=== PATIENT | male | born 1965 | race Caucasian/White ===

== ENCOUNTER 2017-07-15 08:10 | Emergency (ER) | payer OTHER, MEDICAID ==
[~2017-07-15] VITALS: Ht 180.3 cm; Wt 68.0 kg
[2017-07-15 08:14] VITALS: BP 104/61
--- NOTE | 2017-07-15 08:14 | NUR ---
PATIENT BIB FROM [facility] . PER EMS, PATIENT WAS FOUND IN THE BATHROOM FLOOR. PATIENT HAS HX OF SEIZURE. NO N/V/D; SKIN IS PINK/WARM/DRY; PATIENT AWAKE BUT UNABLE TO FOLLOW COMMANDS. LUNGS CLEAR BL; HR EVEN AND REGULAR; NO FEVER, CP, SOB, OR COUGH AT THIS TIME; FLACC 0 THIS TIME; VSS; PATIENT POSITIONED FOR COMFORT; HOB ELEVATED; BEDRAILS UP X2; BED DOWN. ER MD MADE AWARE OF PT STATUS.
--- NOTE | 2017-07-15 08:15 | NUR ---
CODE BRAIN ACTIVATED. CT CALLED.
[2017-07-15] MEDS ORDERED: DEXTROSE 50% 50 ML SYR IVP ONE ×2 (08:19→08:20)
--- NOTE | 2017-07-15 08:51 | NUR ---
ONLINE RADIOLOGY CALLED TRANSFERRED TO DR. THOMAS FOR CRITICAL FINDING.
[2017-07-15] MEDS ORDERED: LORazepam 2 MG/ML VIAL IVP ONE (08:55)
--- NOTE | 2017-07-15 09:00 | NUR ---
CUSTOM MILLER AT BEDSIDE JOSE A LANGE [phone] PATIENT'S BROTHER ERMA NATE [phone]
[2017-07-15 10:12] VITALS: BP 89/56
--- NOTE | 2017-07-15 10:12 | NUR ---
PATIENT PICKED UP BY [facility] TO BE TRANSFERRED TO [facility]. CAREGIVER JOSE A NOTIFIED
== END 2017-07-15 10:12 | disposition short-term general hospital (02) ==
LOC: MED 08:10
DX: G40.909 Epilepsy, unspecified, not intractable, without status epilepticus (principal); I95.89 Other hypotension; F17.210 Nicotine dependence, cigarettes, uncomplicated
CPT/HCPCS: 70450; 82948; 93005; 96374; 96375; 99285; J2060

== ENCOUNTER 2017-08-31 11:54 | Inpatient (IN) | payer OTHER, MEDICAID ==
[~2017-08-31] VITALS: Ht 170.2 cm; Wt 65.3 kg
--- NOTE | 2017-08-31 11:56 | NUR ---
PT BIBA BLS FOR SYNCOPE TO BED 2
--- NOTE | 2017-08-31 12:20 | NUR ---
51 [facility]O [place] [facility] [place] THAT LASTED 2 MINUTES. PT A&O X 2 (WAS UNSURE WHERE HE WAS AND WHY), PT VERY SLOW TO PROCESS INFORMATION. GCS 14, PT ORIENTED TO OWN ABILITY. PER REPORT FROM EMS, PT NEURO IS AT BASELINE R/T HX CVA. CMS INTACT. RR EVEN AND UNLABORED. LUNG SOUNDS BILAT CLEAR. ABD SOFT, NON-TENDER. PT AWAKE SITTING UP IN [facility] AT THIS TIME. PT KEEPS LIFTING RIGHT ARM TO PLAY WITH MY GLOVE AND HIS IV. IV SECURED WELL TO PREVENT PT FROM PULLING OUT. PERRLA INTACT. RIGHT ARM DELIVERY NURSE W/MILD WEAKNESS. ER MD MORGAN NOTIFIED. PT NEEDS MET. SAFETY PRECAUTIONS IN PLACE. WILL CONTINUE TO MONITOR.
--- NOTE | 2017-08-31 12:38 | NUR ---
XRAY AT BEDSIDE AT THIS TIME.
--- NOTE | 2017-08-31 12:46 | NUR ---
LAB AT BEDSIDE AT THIS TIME.
[2017-08-31 13:01] LABS: BASOPHILS % (AUTO) 0.6 % (0.0-2.0); EOSINOPHILS # (AUTO) 0.3 K/uL (0-0.4); EOSINOPHILS % (AUTO) 5.2 % (0.0-4.0); HEMATOCRIT 41.8 % (36-52); HEMOGLOBIN 13.9 g/dL (12.0-18.0); LYMPHOCYTES # (AUTO) 2.3 K/uL (2.0-11.5); LYMPHOCYTES % (AUTO) 38.4 % (20.5-51.1); MEAN CORPUSCULAR HEMOGLOBIN 30 pg (27-31); MEAN CORPUSCULAR HGB CONC 33 g/dL (33-37); MEAN CORPUSCULAR VOLUME 90.4 fL (80-94); MONOCYTES # (AUTO) 0.4 K/uL (0.8-1.0); NEUTROPHILS # (AUTO) 2.9 K/uL (1.8-7.7); NEUTROPHILS % (AUTO) 48.8 % (42.2-75.2); PLATELET COUNT (AUTO) 143 K/uL (140-450); RED BLOOD CELL COUNT(AUTO) 4.63 MIL/uL (4.20-6.10); RED CELL DISTRIBUTION WIDTH 14.2 % (11.6-13.7)
[2017-08-31 13:12] LABS: ANION GAP 13.5 (8-16); CARBON DIOXIDE 23.3 mmol/L (21-32); CREATININE 0.9 mg/dL (0.7-1.3); POTASSIUM 3.8 mmol/L (3.5-5.1)
--- NOTE | 2017-08-31 13:15 | NUR ---
LAB AT BEDSIDE
[2017-08-31 13:18] LABS: TOTAL BILIRUBIN 0.3 mg/dL (0.0-1.0)
--- NOTE | 2017-08-31 13:33 | NUR ---
CALLED LAB;INFORMED THEM UERINE SPECIMEN HAS BEEN COLLECTED.
[2017-08-31 13:53] LABS: APPEARANCE,URINE CLEAR (CLEAR); BLOOD, URINE TRACE-L (NEGATIVE); COLOR,URINE YELLOW (YELLOW); LEUKOCYTE ESTERASE ,URINE NEGATIVE (NEGATIVE); NITRITE, URINE NEGATIVE (NEGATIVE); UGLUCOSE NEGATIVE (NEGATIVE)
[2017-08-31 14:07] LABS: BILIRUBIN,URINE NEGATIVE (NEGATIVE)
[2017-08-31 14:16] LABS: RBC,URINE 3-10 (FEW) /HPF (0-5); WBC,URINE 0-5 (RARE) /HPF (0-5)
--- NOTE | 2017-08-31 15:53 | NUR ---
Pt transferred to Tele via 122B.
[2017-08-31] MEDS ORDERED: HYDROcodone/APAP 7.5/325 MG 1 TAB PO PRN (15:55)
[2017-08-31] MEDS ORDERED: MORPHINE SULFATE 2 MG/ML SYR IVP PRN (15:55)
[2017-08-31] MEDS ORDERED: DOCUSATE SODIUM 100 MG GELCAP PO PRN (15:55)
[2017-08-31] MEDS ORDERED: ONDANSETRON 4 MG/2 ML VIAL IM/IVP PRN (15:55)
[2017-08-31] MEDS ORDERED: ACETAMINOPHEN 325 MG TAB PO PRN (15:55)
--- NOTE | 2017-08-31 15:55 | NUR ---
Patient will be admitted to care of LOVE CUNHA. Admited to TELE. Will go to room 122B. Belongings list completed. Pt tolerated transition well.
[2017-08-31 16:10] VITALS: BP 93/56
--- NOTE | 2017-08-31 16:10 | NUR ---
RECEIVED PT FROM ER, REPORT RECEIVED AT BEDSIDE FROM NURSE SANTOS. PT IS AWAKE, ALERT, OX1. PT HAS HX OF SZ, DM, L HEMIPLEGIA, DYSPHAGIA, AND CVA ABOUT 2 MONTHS AGO. NO IV ACCESS AT THIS TIME. ER NURSE STATED PT PULL OUT HIS IV ON THE WAY TO THE UNIT. VITALS TAKEN, INITIAL ASSESSMENT DONE. RIGHT EYE DEVIATION NOTED. LEFT SIDE SEVERE WEAKNESS NOTED. MRSA SWAB DONE. PLACED PT ON TELE, FALL PRECAUTION AND SEIZURE PRECAUTIONS ARE IN PLACE. BED ALARM ON. BED IN LOWEST POSITION, WILL CONTINUE TO MONITOR.
--- NOTE | 2017-08-31 16:30 | NUR ---
STARTED IV ON RIGHT FA 22G, 1 ATTEMPT, PT TOLERATED WELL.
[2017-08-31] MEDS: NACL 0.9% 1,000 ML IV SCH (16:46)
[2017-08-31] MEDS ORDERED: ZOLPIDEM 5 MG TAB PO PRN (16:55)
[2017-08-31] MEDS ORDERED: DIVA500T1 PO (16:59)
[2017-08-31] MEDS ORDERED: TOPI50TA PO (16:59)
[2017-08-31] MEDS ORDERED: ATOR20TA PO (17:00)
[2017-08-31] MEDS ORDERED: ATI.5 PO (17:00)
[2017-08-31] MEDS ORDERED: ASPI81CT89 PO (17:00)
[2017-08-31] MEDS ORDERED: ZOLP5TAB1 PO (17:01)
[2017-08-31] MEDS ORDERED: CITA20TA7 PO (17:01)
[2017-08-31 17:51] LABS: CHOL/HDL RATIO 2.8 (1-4.5); FREE T4 (FREE THYROXINE) 1.3 ng/dL (0.76-1.46); PHOSPHORUS 3.8 mg/dL (2.5-4.9); THYROID STIMULATING HORMONE 4.66 uIU/mL (0.34-3.74)
[2017-08-31] MEDS: DIVALPROEX 500 MG TABEC PO SCH (17:51)
[2017-08-31 18:18] LABS: PROTHROMBIN TIME 10.5 secs (10.8-13.4)
--- NOTE | 2017-08-31 18:27 | NUR ---
MARCELLUS VORA IS HERE TO VISIT. FEEDING PT ICE CREAM. NO S/S OF ACUTE DISTRESS.
--- NOTE | 2017-08-31 18:30 | NUR ---
PT ABLE TO EAT DINNER BY HIMSELF WITH MINIMAL ASSISTANCE. ACCORDING MARCELLUS VORA, PT USED TO BE SMOKER, HALF PACK A DAY. SCD IS PUT ON. NO S/S OF ACUTE DISTRESS, NO C/O PAIN AT THIS TIME.
--- NOTE | 2017-08-31 19:21 | NUR ---
PT REPORT GIVEN TO SENIOR PROCUREMENT MANAGER RN. PT IN STABLE CONDITION.
--- NOTE | 2017-08-31 19:22 | NUR ---
PATIENT REPORT RECEIVED FROM MORNING NURSE AT BEDSIDE. PATIENT IS ASLEEP, BUT EASY TO AWAKEN. NO SIGNS AND SYMPTOMS OF DISTRESS NOTED. IV SITE NOTED ON RIGHT FOREARM. IVF INFUSING WELL. PATIENT IS ON ROOM AIR. SEIZURE AND SAFETY PRECAUTIONS IN PLACE. BED IN LOWEST POSITION, SIDE RAILS UP AND CALL LIGHT WITHIN REACH. WILL CONTINUE TO MONITOR.
[2017-08-31 20:00] VITALS: BP 100/66
[2017-08-31] MEDS: TOPIRAMATE 100 MG TAB PO SCH (20:46)
--- NOTE | 2017-08-31 22:32 | NUR ---
PATIENT REMOVED TELE LEADS AND THREW TELE BOX OFF THE BED
--- NOTE | 2017-08-31 23:30 | NUR ---
SPOKE TO PATIENT ABOUT IMPORTANCE OF TELE BOX. PATIENT VERBALIZED UNDERSTANDING AND LET ME PUT TELE LEADS BACK ON.
[2017-09-01] VITALS: BP 97/59
[2017-09-01] MEDS ORDERED: LORazepam 2 MG/ML VIAL IVP ONE (03:30)
--- NOTE | 2017-09-01 03:30 | NUR ---
THROUGHOUT THE NIGHT PATIENT KEEPS REMOVING TELE LEADS AND THROWING TELE BOX ON THE FLOOR. DR. REDDY NOTIFIED. ORDERS RECEIVED
[2017-09-01 05:00] VITALS: BP 102/61
[2017-09-01 06:19] LABS: T4 (THYROXINE) 8.4 ug/dL (4.5-12.0)
[2017-09-01 06:25] LABS: BASOPHILS % (AUTO) 0.7 % (0.0-2.0); EOSINOPHILS # (AUTO) 0.3 K/uL (0-0.4); HEMATOCRIT 38.9 % (36-52); HEMOGLOBIN 12.7 g/dL (12.0-18.0); LYMPHOCYTES # (AUTO) 2.2 K/uL (2.0-11.5); LYMPHOCYTES % (AUTO) 39.7 % (20.5-51.1); MEAN CORPUSCULAR HEMOGLOBIN 30 pg (27-31); MEAN CORPUSCULAR HGB CONC 33 g/dL (33-37); MEAN CORPUSCULAR VOLUME 90.7 fL (80-94); MONOCYTES # (AUTO) 0.5 K/uL (0.8-1.0); MONOCYTES % (AUTO) 9.2 % (1.7-9.3); NEUTROPHILS # (AUTO) 2.5 K/uL (1.8-7.7); NEUTROPHILS % (AUTO) 45.4 % (42.2-75.2); PLATELET COUNT (AUTO) 146 K/uL (140-450); RED BLOOD CELL COUNT(AUTO) 4.29 MIL/uL (4.20-6.10); RED CELL DISTRIBUTION WIDTH 14.2 % (11.6-13.7); WHITE BLOOD COUNT (AUTO) 5.4 K/uL (4.8-10.8)
[2017-09-01 07:00] LABS: ANION GAP 9.8 (8-16); CARBON DIOXIDE 23.9 mmol/L (21-32); CREATININE 0.8 mg/dL (0.7-1.3); POTASSIUM 3.7 mmol/L (3.5-5.1)
--- NOTE | 2017-09-01 07:15 | NUR ---
PATIENT REPORT GIVEN TO MORNING NURSE AT BEDSIDE FOR CONTINUITY OF CARE. PATIENT IS IN STABLE CONDITION
--- NOTE | 2017-09-01 07:30 | NUR ---
RECEIVED PT REPORT CIGARETTE CARTON SEALER NURSE. PT IS AWAKE, ALERT, OX1. NO S/S OF DISTRESS NOTED. IV CATH NOTED ON RIGHT FOREARM 22G. IVF INFUSING WELL. PT IS ON ROOM AIR. SEIZURE AND FALL PRECAUTIONS IN PLACE. BED IN LOWEST POSITION, BED ALARM ON, SIDE RAILS UP AND CALL LIGHT WITHIN REACH. WILL CONTINUE TO MONITOR.
[2017-09-01 07:59] LABS: MAGNESIUM 1.9 mg/dL (1.8-2.4); PHOSPHORUS 3.6 mg/dL (2.5-4.9)
[2017-09-01 08:00] VITALS: BP 97/59
--- NOTE | 2017-09-01 08:10 | NUR ---
PT IS CONFUSED AND AGITATED. PT REMOVED TELE BOX AND THREW IT ON THE FLOOR. PT REMOVED SOCKS AND GOWN. WILL ADMINISTER MED ORDERED.
[2017-09-01] MEDS: ATORVASTATIN 20 MG TAB PO SCH (09:15)
[2017-09-01] MEDS: TOPIRAMATE 100 MG TAB PO SCH ×2 (09:16→20:46)
[2017-09-01] MEDS: CITALOPRAM 20 MG TAB PO SCH (09:17)
[2017-09-01] MEDS: DIVALPROEX 500 MG TABEC PO SCH ×3 (09:17→17:03)
[2017-09-01] MEDS: LORazepam 0.5 MG TAB PO PRN ×2 (09:19→20:46)
[2017-09-01] MEDS: NACL 0.9% 1,000 ML IV SCH (09:20)
[2017-09-01] MEDS: ASPIRIN 81 MG TAB.CHEW PO SCH (09:20)
--- NOTE | 2017-09-01 09:20 | NUR ---
MEDS GIVEN. PT SOMETIMES KEEP PILLS IN THE MOUTH. GAVE PT PLENTY OF WATER AND APPLE SAUCE, MADE SURE PT SWALLOWED THEM
--- NOTE | 2017-09-01 11:41 | NUR ---
PATIENT HAS BEEN SCREENED AND CATEGORIZED MODERATE NUTRITION RISK. PATIENT WILL BE SEEN WITHIN 3-5 DAYS OF ADMISSION. 09/03/17 - 09/05/[address]
[2017-09-01 12:00] VITALS: BP 90/54
--- NOTE | 2017-09-01 13:20 | NUR ---
PT HAD A BM, SMALL AMOUNT, BROWN FORMED. CLEANED PT AND CHANGED CHUXS,
--- NOTE | 2017-09-01 13:40 | NUR ---
URINE COLLECTED BY STRAIGHT CATH, PT TOLERATED WELL. SPECIMEN SENT TO LAB.
[2017-09-01 14:11] LABS: BARBITURATE, URINE NEG. ng/ml (NEG <=200); BENZODIAZEPINE, URINE NEG. ng/mL (NEG <=200); CANNABINOID, URINE NEG. ng/mL (NEG <=50); COCAINE, URINE NEG. ng/mL (NEG <=300); OPIATE, URINE NEG. ng/mL (NEG <=2000); PHENCYCLIDINE SCREEN,URINE NEG. ng/mL (NEG <=25)
[2017-09-01 16:00] VITALS: BP 90/55
--- NOTE | 2017-09-01 19:25 | NUR ---
REPORT GIVEN TO WORM PACKER RN, PT IN STABLE CONDITION.
--- NOTE | 2017-09-01 19:26 | NUR ---
PATIENT REPORT RECEIVED FROM MORNING NURSE AT BEDSIDE. PATIENT IS AWAKE AND ALERT. NO SIGNS AND SYMPTOMS OF DISTRESS NOTED. IV SITE NOTED ON RIGHT FOREARM. IVF INFUSING WELL. PATIENT IS ON ROOM AIR. SEIZURE AND SAFETY PRECAUTIONS IN PLACE. BED IN LOWEST POSITION, SIDE RAILS UP AND CALL LIGHT WITHIN REACH. WILL CONTINUE TO MONITOR.
[2017-09-01 20:00] VITALS: BP 91/59
--- NOTE | 2017-09-01 20:00 | NUR ---
PATIENT YELLING AND IS AGITATED. THREW TELE BOX ON THE FLOOR. WILL MEDICATE ORDERED FOR AGITATION.
--- NOTE | 2017-09-01 22:00 | NUR ---
CHECKED ON PATIENT. PATIENT IS ASLEEP. NO SIGNS AND SYMPTOMS OF DISTRESS NOTED. BREATHING EVEN AND UNLABORED. WILL CONTINUE TO MONITOR.
[2017-09-02] VITALS: BP 98/54
--- NOTE | 2017-09-02 | NUR ---
PATIENT VOIDED. PERICARE DONE, BED PADS CHANGED. PATIENT TOLERATED WELL. WILL CONTINUE TO MONITOR.
[2017-09-02] MEDS: NACL 0.9% 1,000 ML IV SCH (01:19)
--- NOTE | 2017-09-02 02:00 | NUR ---
CHECKED ON PATIENT. PATIENT IS ASLEEP. NO SIGNS AND SYMPTOMS OF DISTRESS NOTED. BREATHING EVEN AND UNLABORED. WILL CONTINUE TO MONITOR.
[2017-09-02 04:00] VITALS: BP 94/59
[2017-09-02] MEDS: LORazepam 0.5 MG TAB PO PRN (04:54)
[2017-09-02 06:20] LABS: BASOPHILS % (AUTO) 0.6 % (0.0-2.0); EOSINOPHILS # (AUTO) 0.2 K/uL (0-0.4); EOSINOPHILS % (AUTO) 4.6 % (0.0-4.0); HEMOGLOBIN 11.9 g/dL (12.0-18.0); LYMPHOCYTES # (AUTO) 2.1 K/uL (2.0-11.5); LYMPHOCYTES % (AUTO) 41.8 % (20.5-51.1); MEAN CORPUSCULAR HEMOGLOBIN 30 pg (27-31); MEAN CORPUSCULAR HGB CONC 33 g/dL (33-37); MEAN CORPUSCULAR VOLUME 91.2 fL (80-94); MONOCYTES # (AUTO) 0.4 K/uL (0.8-1.0); MONOCYTES % (AUTO) 8.8 % (1.7-9.3); NEUTROPHILS # (AUTO) 2.2 K/uL (1.8-7.7); NEUTROPHILS % (AUTO) 44.2 % (42.2-75.2); PLATELET COUNT (AUTO) 148 K/uL (140-450); RED BLOOD CELL COUNT(AUTO) 3.95 MIL/uL (4.20-6.10); RED CELL DISTRIBUTION WIDTH 14.3 % (11.6-13.7); WHITE BLOOD COUNT (AUTO) 5.1 K/uL (4.8-10.8)
--- NOTE | 2017-09-02 06:30 | NUR ---
PATIENT STILL KEEPS THROWING TELE BOX ON THE FLOOR. RESIDENT NOT IN ROOM. WILL FOLLOW UP
[2017-09-02 06:40] LABS: ANION GAP 11.8 (8-16); CARBON DIOXIDE 21.9 mmol/L (21-32); CREATININE 0.8 mg/dL (0.7-1.3); POTASSIUM 3.7 mmol/L (3.5-5.1)
[2017-09-02 06:44] LABS: MAGNESIUM 1.9 mg/dL (1.8-2.4); PHOSPHORUS 3.3 mg/dL (2.5-4.9)
--- NOTE | 2017-09-02 07:11 | NUR ---
PATIENT REPORT GIVEN TO MORNING NURSE AT BEDSIDE. PATIENT IS IN STABLE CONDITION
--- NOTE | 2017-09-02 07:40 | NUR ---
PATIENT IS AWAKE, ALERT. RESPIRATION EVEN, UNLABOR ON ROOM AIR. SKIN DRY AND WARM, IV PATENT AND INTACT. FLACC 0. NO DISTRESS NOTED AT THIS TIME. PLAN OF CARE WAS DISCUSSED WITH PATIENT. SEIZURE PRECAUTION IS ENSURED WITH PADDED SIDE RAILS. BED ALARM ACTIVATED. PATIENT INSISTED ON TAKING OFF EKG LEADS AND THROWING THE TELE BOX TO THE FLOOR. MD WAS NOTIFIED.
[2017-09-02 08:00] VITALS: BP 95/53
[2017-09-02] MEDS: TOPIRAMATE 100 MG TAB PO SCH (09:15)
[2017-09-02] MEDS: ATORVASTATIN 20 MG TAB PO SCH (09:15)
[2017-09-02] MEDS: DIVALPROEX 500 MG TABEC PO SCH (09:15)
[2017-09-02] MEDS: ASPIRIN 81 MG TAB.CHEW PO SCH (09:16)
[2017-09-02] MEDS: CITALOPRAM 20 MG TAB PO SCH (09:16)
--- NOTE | 2017-09-02 10:00 | NUR ---
PATIENT AWAKE, ALERT. RESPIRATION EVEN, UNLABOR ON ROOM AIR. NO DISTRESS NOTED AT THIS TIME. CALL LIGHT WITHIN REACH
--- NOTE | 2017-09-02 11:33 | NUR ---
RECEIVED ORDER FOR PATIENT TO GO BACK TO [facility]. FAXED INFORMATION TO [facility]. [place]PO[place] SH[place] [facility] [place] CAN GO TO ROOM 35A UNDER DR. SANCHEZ, ANYTIME. ARNOLDO ALEMANHEATER PLANER OPERATOR NURSE AWARE.
[2017-09-02 12:00] VITALS: BP 91/63
--- NOTE | 2017-09-02 12:13 | NUR ---
CALLED [facility] AND SET UP TRANSPORT. PICKUP IN 30 TO 45 MINUTES, SHARMILA ALEMAN AWARE.
--- NOTE | 2017-09-02 12:51 | NUR ---
CALLED AND GAVE REPORT TO NIRANJAN ALEMAN FROM [facility] [place]. IV WAS REMOVED, CATHETER INTACT, NO ACTIVE BLEEDING SEEN, PATIENT TOLERATED WELL. ID BAND WAS REMOVED. EMT WAS AT BEDSIDE. VS IS TAKEN. PATIENT IS STABLE AT THIS TIME Addendum: 09/02/17 at 1259 by Arely Arellano RN BROTHER ERMA SULLIVAN WAS CALLED AND MADE AWARE OF THE TRANSFER.
== END 2017-09-02 12:30 | disposition home or self-care (01) | DRG 73 ==
LOC: MED 11:54 → MTU 15:17
PROVIDERS: ADMIT Family Medicine Sports Medicine; ATTEND Family Medicine Sports Medicine
DX: G90.9 Disorder of the autonomic nervous system, unspecified (principal); N17.0 Acute kidney failure with tubular necrosis; E44.0 Moderate protein-calorie malnutrition; I69.354 Hemiplegia and hemiparesis following cerebral infarction affecting left non-dominant side; G40.909 Epilepsy, unspecified, not intractable, without status epilepticus; E78.5 Hyperlipidemia, unspecified; F41.9 Anxiety disorder, unspecified; R80.9 Proteinuria, unspecified; E87.8 Other disorders of electrolyte and fluid balance, not elsewhere classified; H50.111 Monocular exotropia, right eye; Z79.899 Other long term (current) drug therapy; I69.320 Aphasia following cerebral infarction; Z68.22 Body mass index [BMI] 22.0-22.9, adult
CPT/HCPCS: 36415; 70450; 71045; 80048; 80053; 80305; 81001; 82150; 82550; 83036; 83605; 83690; 83735; 83880; 84100; 84436; 84439; 84443; 84479; 84484; 85025; 85610; 85730; 87040; 87081; 87086; 93005; 93880; 99285; C1758; J1644; J2060; J7030; Q0092

== ENCOUNTER 2017-09-05 19:27 | Emergency (ER) | payer OTHER, MEDICAID ==
[~2017-09-05] VITALS: Ht 172.7 cm; Wt 72.6 kg
[2017-09-05 19:27] VITALS: BP 111/89
[~2017-09-05 19:27] MED LIST: ASPI81CT89 PO; ATI.5 PO; ATOR20TA PO; CITA20TA7 PO; DIVA500T1 PO; TOPI50TA PO; ZOLP5TAB1 PO
--- NOTE | 2017-09-05 19:30 | NUR ---
PT BIB BLS DUE TO FALLS X 2 TODAY [place] [facility]. 2:30PM AND 5:30PM. PER REPORT PT FELL ON THE RIGHT SIDE OF THE FACE WITH SLIGHT REDNESS. NOTED VERY MINIMIAL REDNESS TO THE RIGHT EYE. SKIN INTACT. A&OX1. PT DOES NOT REMEMBER IF HE FELL AND WHY HE IS HERE. RE-ORIENTATION PROVIDED. VSS AND RR EVEN AND LABORED. DENIES PAIN. SEIZURE PRECAUTIONS IN PLACE DUE TO HX OF SEIZURE. KEPT THE BED TO THE LOWEST. CALL LIGHT IN REACH. ER MD MADE AWARE.
[2017-09-05] MEDS ORDERED: CITA40TA13 PO (19:42)
--- NOTE | 2017-09-05 20:34 | NUR ---
PT TAKEN TO CT SCAN VIA [facility] AT THIS TIME.
--- NOTE | 2017-09-05 20:43 | NUR ---
PT BACK FROM CT SCAN BUT UNABLE TO PERFORM CT SCANS DUE TO PT NOT ABLE TO STAY STILL AND NOT ABLE TO FOLLOW DIRECTIONS. DR. DIOP MADE AWARE.
--- NOTE | 2017-09-05 21:00 | NUR ---
LABS COLLETED ORDERED. UA COLLECTED VIA IN AND OUT CATH DUE TO PT INCONTINENT. DR. DIOP MADE AWARE.
[2017-09-05 21:04] LABS: BASOPHILS % (AUTO) 0.5 % (0.0-2.0); EOSINOPHILS # (AUTO) 0.3 K/uL (0-0.4); EOSINOPHILS % (AUTO) 4.5 % (0.0-4.0); HEMATOCRIT 37.8 % (36-52); HEMOGLOBIN 12.4 g/dL (12.0-18.0); LYMPHOCYTES % (AUTO) 41.8 % (20.5-51.1); MEAN CORPUSCULAR HEMOGLOBIN 30 pg (27-31); MEAN CORPUSCULAR HGB CONC 33 g/dL (33-37); MONOCYTES # (AUTO) 0.6 K/uL (0.8-1.0); MONOCYTES % (AUTO) 8.7 % (1.7-9.3); NEUTROPHILS # (AUTO) 3.2 K/uL (1.8-7.7); NEUTROPHILS % (AUTO) 44.5 % (42.2-75.2); PLATELET COUNT (AUTO) 207 K/uL (140-450); RED BLOOD CELL COUNT(AUTO) 4.15 MIL/uL (4.20-6.10); RED CELL DISTRIBUTION WIDTH 14.8 % (11.6-13.7); WHITE BLOOD COUNT (AUTO) 7.1 K/uL (4.8-10.8)
[2017-09-05 21:14] LABS: ANION GAP 11.8 (8-16); POTASSIUM 3.8 mmol/L (3.5-5.1)
--- NOTE | 2017-09-05 21:25 | NUR ---
INCONTINENT CARE PROIVDED.
[2017-09-05 21:28] LABS: APPEARANCE,URINE CLEAR (CLEAR); BILIRUBIN,URINE NEGATIVE (NEGATIVE); BLOOD, URINE 1+ (NEGATIVE); COLOR,URINE YELLOW (YELLOW); LEUKOCYTE ESTERASE ,URINE NEGATIVE (NEGATIVE); NITRITE, URINE NEGATIVE (NEGATIVE); PH,URINE 5.5 (5.0-9.0); UGLUCOSE NEGATIVE (NEGATIVE)
[2017-09-05 21:28] LABS: ALBUMIN 2.7 g/dL (3.4-5.0); THYROID STIMULATING HORMONE 2.64 uIU/mL (0.34-3.74); TOTAL BILIRUBIN 0.1 mg/dL (0.0-1.0)
[2017-09-05 22:04] LABS: RBC,URINE 3-10 (FEW) /HPF (0-5); WBC,URINE NONE SEEN /HPF (0-5)
--- NOTE | 2017-09-05 23:50 | NUR ---
PT RESTING IN BED. DENIES ANY PAIN OR DISCOMFORT. NO ACUTE DISTRESS NOTED. WILL CONTINUE TO MONITOR.
[2017-09-06 01:14] VITALS: BP 112/62
--- NOTE | 2017-09-06 01:14 | NUR ---
Patient discharged with v/s stable. Written and verbal after care instructions given and explained. Patient verbalized understanding. [facility]. All questions addressed prior to discharge. Advised to follow up with PMD. LOVE POWER FROM [facility] [place] CALLED FOR REPORT.
== END 2017-09-06 01:14 ==
LOC: MED 19:27
DX: Z04.3 Encounter for examination and observation following other accident (principal); G43.909 Migraine, unspecified, not intractable, without status migrainosus; Z86.73 Personal history of transient ischemic attack (TIA), and cerebral infarction without residual deficits; Z79.82 Long term (current) use of aspirin; W06.XXXA Fall from bed, initial encounter; Y93.89 Activity, other specified; Y92.89 Other specified places as the place of occurrence of the external cause; Y99.8 Other external cause status
CPT/HCPCS: 36415; 80053; 81001; 84443; 84484; 85025; 99284